=== PATIENT | male | born 1960 | race Caucasian/White ===

== ENCOUNTER 2017-12-24 13:00 | Outpatient (CLI) | payer OTHER | END 2017-12-24 13:01 | disposition home or self-care (01) | LOC: CP 13:00 | DX: J68.0 Bronchitis and pneumonitis due to chemicals, gases, fumes and vapors (principal) | CPT/HCPCS: 94060; 94727; 94729 ==

== ENCOUNTER → 2018-08-11 | Day surgery (SDC) | payer BC ==
[2018-08-10 13:40] VITALS: BMI 30.3
[~2018-08-11] MED LIST: Bacitracin Zinc Ointment 30 gm TUBE ONE; Dexamethasone 20 MG/5 ML VIAL ONE; Fentanyl 100 MCG/2 ML VIAL ONE; Glycopyrrolate 0.2 MG/ML 5 ML SYRINGE ONE; Hydrocodone-Acetamin 15 ML UDCUP ONE; Ketorolac Tromethamine 30 MG/ML VIAL ONE; Labetalol HCl 100 MG/20 ML VIAL ONE; Lidocaine 1% PF 5 ML VIAL ONE; Lidocaine 1% w/Epinephrine 1:100K 30 ML VIAL ONE; Lidocaine 4% Topical Sol 50 ML BOT ONE; Ondansetron PF 4 MG/2 ML Vial ONE; Oxymetazoline HCl 0.05% ( 15 ML ) ONE; PROPOFOL 200 MG/20 ML VIAL ONE; hydrALAZINE 20 MG/ML VIAL ONE
--- NOTE | 2018-08-11 12:44 | EKG ---
Test Reason : PREOP Blood Pressure : / mmHG Vent. Rate : 064 BPM Atrial Rate : 064 BPM P-R Int : 164 ms QRS Dur : 092 ms QT Int : 406 ms P-R-T Axes : 056 074 043 degrees QTc Int : 418 ms Normal sinus rhythm Normal ECG No previous ECGs available Confirmed by DR. Kayley GASTON ([id number]) on 08/11/2018 12:44:24 PM Referred By: GELA Confirmed By:DR. Kayley GASTON
--- NOTE | 2018-08-12 11:34 | OP ---
PREOPERATIVE DIAGNOSES: 1. Chronic rhinosinusitis. 2. Nasal septal deviation. 3. Bilateral inferior turbinate hypertrophy. 4. Nasal obstruction. POSTOPERATIVE DIAGNOSES: 1. Chronic rhinosinusitis. 2. Nasal septal deviation. 3. Bilateral inferior turbinate hypertrophy. 4. Nasal obstruction. PROCEDURES PERFORMED: 1. Bilateral endoscopic sinus surgery, total ethmoidectomies. 2. Bilateral endoscopic sinus surgery, maxillary antrostomies. 3. Bilateral endoscopic sinus surgery, frontal sinusotomies. 4. Nasal septoplasty. 5. Bilateral inferior turbinate submucosal resection. SURGEON: Alex Abarca M.D. ESTIMATED BLOOD LOSS: 50 mL COMPLICATIONS: None. ANESTHESIA: GETA. PROCEDURE IN DETAIL: Patient was taken to the operating room and placed supine on the table. Genera l endotracheal anesthesia was obtained by the Anesthesia staff. Tube was secured in the left lower l ip. Patient was then placed in the beach chair position, and Afrin pledgets were placed in the nasal cavity. Injections of 1% lidocaine with 1:100,000 epinephrine were made into the nasal septum as we ll as the inferior turbinates. Patient was then prepped and draped in standard surgical fashion for nasal surgery. Following this, the Afrin pledgets were removed. A Whitaker incision was made on the left nasal septum. Submucoperichondrial dissection was performed. The deviated portions of the sept um included portions of the cartilage and the bony septum. These isolated areas were removed using t hree cutting rongeurs. There was noted to be a large dorsal and caudal strut, left intact for suppor t of the nose. The mucoperichondrial flaps were then reapproximated using a 4-0 gut stitch. Any str aight pieces of cartilage were crushed prior to this and placed between the mucoperichondrial flaps. Following this, the inferior turbinates were then punctured with a submucosal coblation wand, and smart bmucosal coblations were performed of multiple areas of the inferior portion of the anterior inferior turbinate. Please note that the submucosal microdebrider was used to submucosally resect the anterior and inferi or portions of the inferior turbinates bilaterally. Following this, the 0 degree scope was advanced into the middle meatus. The middle turbinates were gently medialized using a [place] elevator and the uncinate process was identified bilaterally. Following this, the uncinate process was then anteriorl y fractured using the ball-ended probe and was then removed bilaterally using the microdebrider and u pbiting Blakesley forceps. Following this, the natural maxillary sinus ostia was then identified and was gently widened using the straight [place]ley forceps and the straight microdebrider. Following t his, the ethmoidal bulla was identified bilaterally and was punctured on its medial and inferior aspe ct and was removed using the microdebrider and upbiting Blakesley forceps bilaterally. Following thi s, the grand lamella was identified and was punctured into the posterior ethmoidal cells. Working fr om posterior to anterior, the ethmoidal cells were opened in a mucosal-sparing technique bilaterally using the 0 degree microdebrider, upbiting microdebrider and the [place]akesley forceps. Following this, the 45 degree endoscope along with the curved microdebrider were used to further open the frontal rec ess cells and anterior ethmoidal cells bilaterally. This exposed the frontal sinus ostia bilaterally , which was gently widened using the curved microdebrider. Following this, the nasal cavity was irri gated. MeroGel packs were placed within the middle meatus. Blue splints were placed and secured. The patient tolerated the procedure well.
== END ==
LOC: SDC 07:14
PROVIDERS: ATTEND Otolaryngology Plastic Surgery within the Head & Neck
DX: J32.9 Chronic sinusitis, unspecified (principal); J34.2 Deviated nasal septum; J34.3 Hypertrophy of nasal turbinates; Z79.899 Other long term (current) drug therapy
CPT/HCPCS: 93005; 93010; 96374; 96375; 96376; J0360; J1885; J2001; J3010